=== PATIENT | female | born 1955 | race American Indian/Alaskan Native ===

== ENCOUNTER 2016-05-23 07:57 | Day surgery (SDC) | payer OTHER ==
[2016-05-23] MEDS ORDERED: NACL 0.9% 1000 ML 1,000 ML IV SCH ×2 (09:00→10:00)
--- NOTE | 2016-05-23 11:07 | History and Physical Report ---
History of Present Illness Date of examination: 05/23/16 Date of admission: 05/23/2016 Chief complaint: Colorectal cancer screening. History of present illness: Patient is a 60-year-old female referred for colorectal cancer screening. Denies any additional complaints. Past History Past Medical History: diabetes, hypertension, hyperlipidemia, other (bronchitis and asthma) Past Surgical History: cholecystectomy, hysterectomy, total knee replacement, Other (blood and mesh insertion and removal) Social history: denies: smoking, alcohol abuse Medications and Allergies Allergies Allergy/AdvReac Type Severity Reaction Status Date / Time codeine AdvReac Hives,ITCHI Verified 05/09/16 08:27 NG insulin aspart [From [employer]] AdvReac SEVERE LEG Verified 05/09/16 08:27 CRAMPS Home Medications Medication Instructions Recorded Confirmed Last Taken Type AtorvaSTATin 10 mg PO DAILY 05/09/16 05/23/16 05/22/16 History ISOSORBIDE MONOnitrate 30 mg PO DAILY 05/09/16 05/23/16 05/23/16 History Lantus VIAL 40 units SUB-Q HS 05/09/16 05/21/16 05/21/16 History Vitamin D 5,000 units PO DAILY 05/09/16 05/23/16 05/22/16 History glipiZIDE 10 mg PO DAILY 05/09/16 05/23/16 05/22/16 History metFORMIN 1,000 mg PO BID 05/09/16 05/21/16 05/21/16 History HumaLOG VIAL 8 units SUB-Q TID 05/21/16 05/21/16 05/21/16 History Mag Oxide/D3/Turmeric Rt Xt 500 mg PO DAILY 05/21/16 05/23/16 05/22/16 History Active Meds: Active Medications Sodium Chloride (Nacl 0.9% 1000 Ml) 1,000 mls @ 50 mls/hr IV DIRECT HELGA Sodium Chloride (Nacl 0.9% 1000 Ml) 1,000 mls @ 50 mls/hr IV DIRECT HELGA Last Admin: 05/23/16 09:15 Dose: 50 mls/hr Review of Systems All systems: negative Exam - Constitutional Vitals: Temp Pulse Resp BP Pulse Ox 97.7 F 61 16 132/81 100 05/23/16 08:59 05/23/16 08:59 05/23/16 08:59 05/23/16 08:59 05/23/16 08:59 General appearance: Present: no acute distress, well-nourished - EENT Eyes: Present: PERRL ENT: hearing intact, clear oral mucosa - Neck Neck: Present: supple, normal ROM - Respiratory Respiratory effort: normal Respiratory: bilateral: CTA - Cardiovascular Heart Sounds: Present: S1 & S2. Absent: rub, click - Extremities Extremities: pulses symmetrical, No edema Peripheral Pulses: within normal limits - Abdominal General gastrointestinal: Present: soft, non-tender, non-distended, normal bowel sounds Female genitourinary: Present: normal - Integumentary Integumentary: Present: clear, warm, dry - Musculoskeletal Musculoskeletal: gait normal, strength equal bilaterally - Psychiatric Psychiatric: appropriate mood/affect, intact judgment & insight - Neurologic Neurologic: CNII-XII intact, moves all extremities Results - Labs Labs: Abnormal lab results 05/23/16 Range/Units 08:49 POC Glucose 235 H (70-105) Assessment and Plan Colorectal cancer screening. Plan: Full colonoscopy.
[2016-05-23] MEDS ORDERED: DIPRIVAN 10 MG/ML IV ONE ×4 (11:36→12:25)
[2016-05-23] MEDS ORDERED: XYLOCAINE MPF 2% ONE (11:40)
--- NOTE | 2016-05-23 12:46 | Operative Report ---
Operative Report Operative Report: Date of procedure: 05/23/2016 Procedure: Colonoscopy with multiple snare polypectomies, multiple submucosal injections, multiple hot biopsy polypectomies, multiple polyp ablations Attending physician: Jason Gillis MD Cable Television Technician: Jason Gillis MD Indication: Patient is a 60-year-old female who presents for colorectal cancer screening. Consent: Informed consent was obtained after advising the patient and family regarding nature of this procedure, its indications, potential benefits as well as possible complications including but not limited to bleeding perforation and adverse reaction to medication, infection as well as other cardiopulmonary complications. An informed written and verbal consent was then obtained after due opportunity was provided for questions and answers. Monitoring: Patient was monitored continuously with pulse oximetry and electrocardiographic recordings as well as blood pressure recordings. Vital signs remained stable throughout this procedure with no untoward events. Preoperative assessment: Patient was assessed immediately prior to this procedure for capacity to tolerate monitored anesthesia care and moderate sedation as well as general anesthesia. Patient's ASA classification is 2, Mallampati class is 2, Hyomental distance is 3. Instrument: [employer] video colonoscope Medications: Propofol given intravenously in divided doses for details please refer to anesthesia records Description of procedure: Patient was placed in the left lateral decubitus position after achieving sedation, a digital rectal examination was performed following which the colonoscope was introduced into the anal verge and advanced to the cecum which was identified by the cecal valve, the appendiceal orifice, as well as by the cecal strap and direct transillumination. The colonoscope was subsequently withdrawn with careful inspection of all mucosal surfaces. Patient tolerated this procedure well and was subsequently taken to the recovery room. The following findings were noted. Findings: There was some residual thick liquid stool in sections the colon which was vigorously irrigated. The colon was moderately tortuous. There was diverticula of moderate severity seen in the sigmoid and the descending colon. In the sigmoid colon, there was a broad-based flat polyp. It measured approximately 1 cm. It was injected with normal saline submucosally to elevate it and removed piecemeal by snare electrocautery and also hot biopsy polypectomy. Samples were retrieved. There are multiple adjoining diminutive polyps there were flat these measured between 4-5 mm. All polyps removed by hot biopsy polypectomy and retrieved. In the rectum, patient had a broad- based 1.5 cm flat polyp was removed it was injected submucosally saline and removed by snare electrocautery and retrieved. Multiple adjoining polyps measuring between 4-7 mm there were also flat these were removed by hot biopsy polypectomy. There also multiple diminutive polyps there were flat these were ablated. The rest of the examination to the cecum was normal. On the retroflex view at the anal verge, patient had internal hemorrhoids. Impression: Diverticulosis of the colon. Moderately tortuous colon Retained stool. Multiple colon polyps status post snare polypectomy submucosal injection hot biopsy polypectomy and polyp ablation.] Plan: Follow pathology report. High-fiber diet next and repeat colonoscopy in 5 years.
--- NOTE | 2016-05-23 12:47 | Discharge Summary ---
Short Stay Discharge Plan Activity: advance as tolerated Weight Bearing Status: Weight Bear as Tolerated Diet: regular Follow up with: DALTON VELA MD [Primary Care Provider] - 7 Days
[2016-05-23 13:57] VITALS: BP 158/80
--- NOTE | 2016-05-23 14:06 | Post Anesthesia Evaluation ---
- Post Anesthesia Evaluation Patient Participated: Yes Airway Patent: Yes Stable Respiratory Function: Yes Temp > 96.8F: Yes Pain Manageable: Yes Adequeate Hydration: Yes Anesthesia Complications: No Block Receding Appropriately: Not Applicable
== END 2016-05-23 07:58 | disposition home or self-care (01) ==
LOC: GIO 07:57
PROVIDERS: ATTEND Internal Medicine Gastroenterology
DX: Z12.11 Encounter for screening for malignant neoplasm of colon (principal); K63.5 Polyp of colon; K62.1 Rectal polyp; K64.8 Other hemorrhoids; K57.30 Diverticulosis of large intestine without perforation or abscess without bleeding; K63.89 Other specified diseases of intestine; E11.9 Type 2 diabetes mellitus without complications; I10 Essential (primary) hypertension; E78.5 Hyperlipidemia, unspecified; J45.909 Unspecified asthma, uncomplicated; Z90.49 Acquired absence of other specified parts of digestive tract; Z90.710 Acquired absence of both cervix and uterus; Z96.659 Presence of unspecified artificial knee joint
CPT/HCPCS: 45381; 45384; 45385; 45388; 82962; 88305; J2704; J7030